=== PATIENT | male | born 1955 | race Caucasian/White ===

== ENCOUNTER → 2017-03-25 | Outpatient (CLI) | payer OTHER ==
[~2017-03-25] MED LIST: ACC/20 PO; AMB10 PO; ASPI81TA28 PO; ATEN25TA PO; ATOR80TA PO; ATV1 PO; DILT120C99 PO; FORXIGA PO; GABA1CAP PO; INSU1INJ15 SC; ISOS60TA25 PO; MELATAB2 PO; METF1000 PO; NITR0.4S UT; NRN/300 PO; NVLGI SC; OMEG10002 PO; PANT1TAB48 PO; RXC5 PO; SENNTAB23 PEG; TRAM-10 PO
--- NOTE | 2017-03-25 15:39 | DIAGNOSTIC IMAGING REPORT ---
RIGHT LOWER EXTREMITY VENOUS DOPPLER HISTORY: Right leg pain and swelling. COMPARISON STUDY: None. FINDINGS: There is normal compressibility, flow, and augmentation within the right lower extremity deep venous system. Subcutaneous edema within the right calf. IMPRESSION: No DVT within the right lower extremity Electronically signed by: Satnam Winston M.D. 03/25/2017 3:37 PM Dictated Date/Time: 03/25/2017 3:37 PM
== END | disposition home or self-care (01) ==
LOC: C.ULTR 15:04
PROVIDERS: ATTEND Orthopaedic Surgery
DX: M79.661 Pain in right lower leg (principal); M79.89 Other specified soft tissue disorders